=== PATIENT | female | born 2000 | race Two or more races ===

== ENCOUNTER 2024-11-13 13:29 | Emergency (ER) | payer MEDICAID ==
[~2024-11-13] VITALS: Ht 172.7 cm; Wt 72.0 kg
[2024-11-13 14:01] VITALS: O2SAT 100
[2024-11-13 15:52] LABS: HCG SCREEN NEGATIVE
[2024-11-13 16:09] LABS: CLARITY URINE CLEAR (CLEAR); COLOR URINE YELLOW (YELLOW); GLUCOSE URINE NEGATIVE (NEGATIVE); KETONES URINE NEGATIVE (NEGATIVE); LEUKOCYTE ESTERASE URINE 3+ (NEGATIVE); NITRITE URINE NEGATIVE (NEGATIVE); OCCULT BLOOD URINE 2+ (NEGATIVE); PH URINE 5.5 (4.5-8.0); PROTEIN URINE NEGATIVE (NEGATIVE); SPECIFIC GRAVITY URINE 1.018 (1.005-1.030); UROBILINOGEN URINE 0.2 E.U./dL (0.2-1.0)
[2024-11-13 16:42] LABS: BACTERIA URINE 2+; SQUAMOUS EPITHELIAL CELL URINE FEW /lpf (RARE/1+); WBC URINE 25-50 /hpf (0-2)
[2024-11-13] MEDS: DOXYCYCLINE HYCLATE 100MG CAPSULE PO ONE (16:54)
[2024-11-13] MEDS: CEFTRIAXONE SODIUM 500MG VIAL IM ONE (16:54)
[2024-11-13] MEDS: LIDOCAINE HCL 1% 20ML VIAL INFIL ONE (16:54)
[2024-11-13 17:00] VITALS: BP 125/77; PULSE 87; RESP 18; TEMP 36.8; O2SAT 100
[2024-11-15 17:07] LABS: CHLAMYDIA TRACHOMATIS NAA Negative (Negative); NEISSERIA GONORRHOEAE NAA Negative (Negative)
== END 2024-11-13 17:01 | disposition home or self-care (01) ==
LOC: ER 13:29
DX: Z11.3 Encounter for screening for infections with a predominantly sexual mode of transmission (principal); J45.909 Unspecified asthma, uncomplicated
CPT/HCPCS: 99283; 86592; 87491; 87591; 81003; 84703; 87086; 36415; 96372; J0696; J2003